=== PATIENT | male | born 1995 | race Caucasian/White ===

== ENCOUNTER 2021-04-15 20:31 | Emergency (ER) | payer OTHER, SELFPAY ==
[~2021-04-15] VITALS: Ht 167.6 cm; Wt 74.5 kg
[2021-04-15 20:32] VITALS: BP 143/82
[2021-04-15] MEDS ORDERED: EPIN0.3I11 IM (20:42)
[2021-04-15] MEDS ORDERED: diphenhydrAMINE 50MG CAP PO ONE (20:55)
== END 2021-04-15 23:14 | disposition left against medical advice (07) ==
LOC: M ED 20:31
DX: Z53.21 Procedure and treatment not carried out due to patient leaving prior to being seen by health care provider (principal)

== ENCOUNTER → 2021-11-03 | Outpatient (REF) | payer OTHER ==
[~2021-11-03] MED LIST: EPIN0.3I11 IM
== END ==
LOC: M LAB REF 09:59
PROVIDERS: ATTEND Nurse Practitioner Family
DX: J06.9 Acute upper respiratory infection, unspecified (principal)

== ENCOUNTER → 2022-06-23 | Outpatient (REF) | payer OTHER | LOC: M LAB REF 09:08 | PROVIDERS: ATTEND Nurse Practitioner Family | DX: J06.9 Acute upper respiratory infection, unspecified (principal) ==